=== PATIENT | female | born 1995 | race Caucasian/White ===

== ENCOUNTER 2016-11-08 15:11 | Emergency (ER) | payer OTHER ==
--- NOTE | 2016-11-08 17:41 | ER NURSING DOCUMENTATION ---
Nurse's Notes [facility] Name:Trang Ornelas Age:21 yrs Sex:Female :1995 Arrival Date:11/08/2016 Time:15:11 Bed5 Private MD: Diagnosis:Closed Head Injury w/o Cranial Wound, Unspec State LOC;Concussion without LOC Presentation: 11/08 15:14 Presenting complaint: Patient states: pt fell backwards yesterday since then she has st had a headache. pt denies any LOC, nausea, or vision changes. Transition of care: Home. 15:14 Method Of Arrival: Private Vehicle st 15:19 Acuity: ELI 3 st 17:[address] Triage Assessment: 15:14 Headache History: Denies prior headaches. General: Appears in no apparent distress, st Behavior is cooperative. Pain: Complains of pain in headache Pain currently is 5 out of 10 on a pain scale. Pain began 1 day ago Also complains of nausea. Neuro: Level of Consciousness is awake, alert, Oriented to person, place, time, event. Musculoskeletal: Tenderness present in right scapular area. Historical: - Allergies: No known drug Allergies; - Home Meds: 1. None - PMHx: None; - PSHx: None; - Tetanus: < 10 years. - Ebola Screening: : Patient denies exposure to infectious person. Patient denies travel to an Ebola-affected area in the 21 days before illness onset. . - Immunization history: Pneumococcal vaccine status is unknown. - Social history: Smoking status: Patient states was never smoker of tobacco. Patient uses alcohol occasionally. Patient/guardian denies using marijuana. Screenin:30 Infectious Disease Risk None. Abuse screen: Denies threats or abuse. Denies injuries st from another. pt feels safe at home. Nutritional screening: No deficits noted. Assessment: 16:25 General: pt updated as to reasons for delay. pt condition has not changed. pt it st speaking with a friend.. Vital Signs: 17:29 BP 160 / 98; Pulse 90; Pulse Ox 96% on R/A; Pain 5/10; st ED Course: 15:14 Patient arrived in ED. arc 15:14 DomoCorinne jean baptiste, RN is Primary Nurse. st 15:[address] 17:21 Austin Haley MD is Attending Physician. tl1 17:21 Tomer Milian MD is Referral Physician. tl1 17:30 Valuables Remains with patient. st Administered Medications: No medications were administered Outcome: 17:22 Discharge ordered by . 1 17:40 Discharged to home ambulatory. 17:40 Condition: good 17:40 Discharge Assessment: Patient awake, alert and oriented x 3. No cognitive and/or functional deficits noted. Patient verbalized understanding of disposition instructions. 17:40 Discharge instructions given to patient, Instructed on discharge instructions, follow up and referral plans. medication usage, WC FORMS Demonstrated understanding of instructions. 17:41 Patient left the ED. 11/09 17:27 Discharge F/U Call: Unable to reach: left voicemail: Signatures: Corinne Cody, RN RN Sherice Addison RN RN Austin Howe MD MD tl1 Pooja Peraza, Reg Reg arc
--- NOTE | 2016-11-08 17:41 | ER PHYSICIAN DOCUMENTATION ---
Physician Documentation [facility] Name:Trang Ornelas Age:21 yrs Sex:Female :1995 Arrival Date:11/08/2016 Time:15:11 Bed5 Private MD: Austin Benavides Disposition: 11/09 08:54 Chart complete. tl1 Disposition: 11/08/16 17:22 Discharged to Home/Self Care. Impression: Closed Head Injury w/o Cranial Wound, Unspec State LOC, Concussion without LOC. - Condition is Good. - Discharge Instructions: CONCUSSION, No Wake Up, Acute Brain Injuries - HEAD INJURY, No Wake-Up (Adult). - Prescriptions for Zofran 4 mg Oral Tablet - take 1-2 tablet by ORAL route every 4-6 hours As needed; 10 tablet. - Medical Reconciliation form form. - Follow up: Tomer Rivero MD; When: 2 - 3 days; Reason: Recheck today's complaints, Continuance of care. - Problem is new. - Symptoms have improved. - Notes: NO WORK UNTIL YOUR HEADACHE IS GONE AND YOU HAVE NO OTHER SYMPTOMS. WHEN YOU ARE ASYMPTOMATIC YOU CAN START WITH LIMITED WORK AND PROGRESS LONG YOU CONTINUE TO BE ASYMPTOMATIC. IF YOU DEVELOP RECURRENT SYMPTOMS SUCH HEADACHE, VISUAL PROBLEMS, NAUSEA, DIFFICULTY CONCENTRATING, YOU NEED TO STOP WORKING AND FOLLOW UP WITH DR RIVERO. HPI: 11/08 15:30 This 21 yrs old Female presents to ER with complaints of Headache. tl1 15:30 The patient complains of pain to the top of head. The patient describes the headache as tl1 constant, a pressure. Onset: The symptoms/episode began/occurred gradually, today. 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 She was briefly dazed, but had no LOC. SHE developed a mild h/a last night, but was able to sleep and today she has a persistent h/a, w/o N/V, visual changes, speech problems or gait disorder. No difficulty concentrating. she is concerned about the persistence of the h/a and comes in for evaluation. Deneis neck pain, N/W/T, back or any other pain.. Historical: - Allergies: No known drug Allergies; - Home Meds: 1. None - PMHx: None; - PSHx: None; - Tetanus: < 10 years. - Ebola Screening: : Patient denies exposure to infectious person. Patient denies travel to an Ebola-affected area in the 21 days before illness onset. . - Immunization history: Pneumococcal vaccine status is unknown. - Social history: Smoking status: Patient states was never smoker of tobacco. Patient uses alcohol occasionally. Patient/guardian denies using marijuana. ROS: 17:45 Neuro: Positive for headache, Negative for altered mental status, dizziness, gait tl1 disturbance, hearing loss, loss of consciousness, speech changes, syncope, tingling, visual changes, weakness. 17:45 All other systems are negative. Exam: 17:45 ENT: Nares patent. No nasal discharge, no septal abnormalities noted. Tympanic tl1 membranes are normal and external auditory canals are clear. Oropharynx with no redness, swelling, or masses, exudates, or evidence of obstruction, uvula midline. Mucous membranes moist. 17:45 Neck: Trachea midline, no thyromegaly or masses palpated, and no cervical tl1 lymphadenopathy. Supple, full range of motion without nuchal rigidity, or vertebral point tenderness. No Meningismus. 17:45 Constitutional: This is a well developed, well nourished patient who is awake, alert, and in no acute distress. Head/Face: She has mild TTP over the occiput but no palpable hematoma. No Rossi's sign. ENT: Nares patent. No nasal discharge, no septal abnormalities noted. Tympanic membranes are normal and external auditory canals are clear. Oropharynx with no redness, swelling, or masses, exudates, or evidence of obstruction, uvula midline. Mucous membranes moist. 17:45 Eyes: Exam is negative for acute changes, Periorbital structures: appear normal, Pupils: equal, round, and reactive to light and accomodation, Extraocular movements: intact throughout, Conjunctiva: normal. 17:45 Chest/axilla: Inspection: normal, Palpation: crepitus, is not appreciated, tenderness, that is mild, of the from the left mid clavicle to the inferomedial aspect of the right breast. 17:45 Cardiovascular: Exam negative for acute changes, Rate: normal, Rhythm: regular, Heart sounds: normal. 17:45 Respiratory: the patient does not display signs of respiratory distress, Respirations: normal, Breath sounds: are normal. 17:45 Abdomen/GI: Palpation: abdomen is soft and non-tender. 17:45 Back: pain, is absent, CVA tenderness, is absent. 17:45 Musculoskeletal/extremity: Exam is negative for acute changes. 17:45 Skin: Exam negative for acute changes. 17:45 Neuro: Orientation: is normal, Mentation: is normal, Memory: is normal, Cranial nerves: grossly normal, Motor: moves all fours, Gait: is steady, at a normal pace, without difficulty, appropriate for age. 17:45 ENT: TM's: are normal. tl1 Vital Signs: 17:29 BP 160 / 98; Pulse 90; Pulse Ox 96% on R/A; Pain 5/10; st MDM: 15:17 Patient medically screened. tl1 17:45 Data reviewed: vital signs, nurses notes, and as a result, I will discharge patient. tl1 Counseling: I had a detailed discussion with the patient and/or guardian regarding: the historical points, exam findings, and any diagnostic results supporting the discharge/admit diagnosis, the need for outpatient follow up, to return to the emergency department if symptoms worsen or persist or if there are any questions or concerns that arise at home. Special discussion: given the minor mechanism of injury, imaging of her head is extremely unlikely to show significant abnormalities.. Dispensed Medications: No medications were administered Signatures: Corinne Cody, RN Sherice Slater RN RN lc Leigh, Tom, MD MD tl1
== END 2016-11-08 17:41 | disposition home or self-care (01) ==
LOC: ER 15:11
DX: S06.0X0A Concussion without loss of consciousness, initial encounter (principal); R51 Headache; M79.1 Myalgia; W01.0XXA Fall on same level from slipping, tripping and stumbling without subsequent striking against object, initial encounter; Y92.838 Other recreation area as the place of occurrence of the external cause; Y93.41 Activity, dancing; Y99.0 Civilian activity done for income or pay
CPT/HCPCS: 99281